=== PATIENT | female | born 1945 | race Two or more races ===

== ENCOUNTER 2017-12-03 18:11 | Inpatient (IN) | payer OTHER ==
[~2017-12-03] VITALS: Ht 91.4 cm; Wt 5.0 kg
[~2017-12-03 18:11] MED LIST: NO TOMA MEDICAMENTO
[2017-12-03] MEDS ORDERED: HYDROCHLOROTHIA25 MG (19:05)
[2017-12-03] MEDS ORDERED: PRILOSEC OTC20 MG (19:05)
[2017-12-03] MEDS ORDERED: COREG CR10 MG (19:05)
[2017-12-03] MEDS ORDERED: COZAAR100 MG (19:06)
[2017-12-03] MEDS ORDERED: ECOTRIN81 MG PO (19:06)
[2017-12-03] MEDS ORDERED: RANEXA500 MG PO (19:06)
[2017-12-03] MEDS ORDERED: CARDURA1 MG (19:06)
[2017-12-03] MEDS ORDERED: NOVOLIN 70100 UNIT/1 (19:07)
[2017-12-03] MEDS ORDERED: CRESTOR40 MG (19:07)
[2017-12-03] MEDS ORDERED: FOLIC ACID1 MG (19:08)
[2017-12-03] MEDS ORDERED: HUMALOG100 UNIT/1 (19:08)
[2017-12-03] MEDS ORDERED: SLOW FE142 MG (19:09)
[2017-12-06] MEDS ORDERED: Lantus 1000 UNITS/10 SUBCUTANEO (08:41)
[2017-12-06] MEDS ORDERED: CARdura 4MG TABLET PO (08:41)
[2017-12-06] MEDS ORDERED: ECOTRIN81 MG PO (08:41)
[2017-12-06] MEDS ORDERED: Coreg 3.125MG TABLET PO (08:41)
== END 2017-12-06 11:04 | disposition home or self-care (01) | DRG 683 ==
LOC: ER 18:11 → MEDI 12-04 11:00 → SEC-K 12-04 11:00 → MEDI 12-04 16:21
PROC: 30233N1 Transfusion of Nonautologous Red Blood Cells into Peripheral Vein, Percutaneous Approach (ICD-10-PCS; principal; 2017-12-04)
DX: I12.9 Hypertensive chronic kidney disease with stage 1 through stage 4 chronic kidney disease, or unspecified chronic kidney disease (principal); Z68.42 Body mass index [BMI] 45.0-49.9, adult; N18.3 Chronic kidney disease, stage 3 (moderate); D63.1 Anemia in chronic kidney disease; I25.10 Atherosclerotic heart disease of native coronary artery without angina pectoris; E66.01 Morbid (severe) obesity due to excess calories; I70.293 Other atherosclerosis of native arteries of extremities, bilateral legs

== ENCOUNTER → 2018-10-13 | Emergency (ER) | payer OTHER ==
[~2018-10-13] VITALS: Ht 152.4 cm; Wt 99.8 kg
[~2018-10-13] MED LIST changes: +CARDURA1 MG; +CARdura 4MG TABLET PO; +COREG CR10 MG; +COZAAR100 MG; +CRESTOR40 MG; +Coreg 3.125MG TABLET PO; +ECOTRIN81 MG PO; +FOLIC ACID1 MG; +HUMALOG100 UNIT/1; +HYDROCHLOROTHIA25 MG; +Lantus 1000 UNITS/10 SUBCUTANEO; +NOVOLIN 70100 UNIT/1; +POM (MEDICAMENTO EN PO; +PRILOSEC OTC20 MG; +RANEXA500 MG PO; +SLOW FE142 MG
== END | disposition left against medical advice (07) ==
LOC: ER 15:50
DX: Z53.20 Procedure and treatment not carried out because of patient's decision for unspecified reasons (principal)

== ENCOUNTER 2018-10-18 09:47 | Inpatient (IN) | payer OTHER ==
[~2018-10-18] VITALS: Ht 160 cm; Wt 85.7 kg
[~2018-10-18 09:47] MED LIST changes: -POM (MEDICAMENTO EN PO
[2018-10-21] MEDS ORDERED: POM (MEDICAMENTO EN PO (11:23)
== END 2018-10-21 11:48 | disposition home or self-care (01) | DRG 812 ==
LOC: MEDJ 09:47
PROVIDERS: ADMIT Internal Medicine Hematology & Oncology
PROC: 30233N1 Transfusion of Nonautologous Red Blood Cells into Peripheral Vein, Percutaneous Approach (ICD-10-PCS; principal; 2018-10-18)
PROC: BW21ZZZ Computerized Tomography (CT Scan) of Abdomen and Pelvis (ICD-10-PCS; 2018-10-19)
DX: D50.0 Iron deficiency anemia secondary to blood loss (chronic) (principal); I13.10 Hypertensive heart and chronic kidney disease without heart failure, with stage 1 through stage 4 chronic kidney disease, or unspecified chronic kidney disease; N18.3 Chronic kidney disease, stage 3 (moderate); I25.10 Atherosclerotic heart disease of native coronary artery without angina pectoris; D63.1 Anemia in chronic kidney disease

== ENCOUNTER 2019-01-29 10:28 | Inpatient (IN) | payer OTHER ==
[~2019-01-29 10:28] MED LIST changes: +POM (MEDICAMENTO EN PO
[2019-02-01] MEDS ORDERED: Coreg 25MG TABLET PO (16:27)
[2019-02-01] MEDS ORDERED: CARdura 2MG TABLET PO (16:27)
[2019-02-01] MEDS ORDERED: RANEXA500 MG PO (16:28)
[2019-02-01] MEDS ORDERED: LOSARTAN POTAS100 MG PO (16:28)
[2019-02-01] MEDS ORDERED: CRESTOR40 MG PO (16:29)
[2019-02-01] MEDS ORDERED: ALPRAZOLAM0.25 MG PO (16:30)
[2019-02-01] MEDS ORDERED: OXYC1TAB9 PO (16:32)
[2019-02-01] MEDS ORDERED: HYDROCHLOROTHIA25 MG PO (16:33)
[2019-02-01] MEDS ORDERED: PRILOSEC OTC20 MG PO (16:34)
[2019-02-01] MEDS ORDERED: HumuLIN R 100 UNIT/1 SUBCUTANEO (16:34)
[2019-02-01] MEDS ORDERED: NOVOLOG MI100 UNIT/1 SUBCUTANEO (16:35)
[2019-02-01] MEDS ORDERED: FOLIC ACID1 MG PO (16:36)
[2019-02-01] MEDS ORDERED: LASIX20 MG PO (16:37)
== END 2019-02-01 17:02 | disposition home or self-care (01) | DRG 812 ==
LOC: MEDI 10:28 → MEDJ 10:31
PROVIDERS: ADMIT Internal Medicine Hematology & Oncology
PROC: 8E0ZXY6 Isolation (ICD-10-PCS; 2019-01-29)
PROC: 30233N1 Transfusion of Nonautologous Red Blood Cells into Peripheral Vein, Percutaneous Approach (ICD-10-PCS; 2019-01-29)
PROC: 07DR3ZX Extraction of Iliac Bone Marrow, Percutaneous Approach, Diagnostic (ICD-10-PCS; principal; 2019-01-30 16:00)
DX: D50.0 Iron deficiency anemia secondary to blood loss (chronic) (principal); D63.1 Anemia in chronic kidney disease; D63.8 Anemia in other chronic diseases classified elsewhere; Z92.89 Personal history of other medical treatment; E11.65 Type 2 diabetes mellitus with hyperglycemia; I25.10 Atherosclerotic heart disease of native coronary artery without angina pectoris; N18.3 Chronic kidney disease, stage 3 (moderate); E66.01 Morbid (severe) obesity due to excess calories; I70.203 Unspecified atherosclerosis of native arteries of extremities, bilateral legs; K21.9 Gastro-esophageal reflux disease without esophagitis; I13.10 Hypertensive heart and chronic kidney disease without heart failure, with stage 1 through stage 4 chronic kidney disease, or unspecified chronic kidney disease

== ENCOUNTER 2019-05-04 14:06 | Inpatient (IN) | payer OTHER ==
[~2019-05-04] VITALS: Ht 121.9 cm; Wt 5.0 kg
[~2019-05-04 14:06] MED LIST changes: +ALPRAZOLAM0.25 MG PO; +CARdura 2MG TABLET PO; +CRESTOR40 MG PO; +Coreg 25MG TABLET PO; +FOLIC ACID1 MG PO; +HYDROCHLOROTHIA25 MG PO; +HumuLIN R 100 UNIT/1 SUBCUTANEO; +LASIX20 MG PO; +LOSARTAN POTAS100 MG PO; +NOVOLOG MI100 UNIT/1 SUBCUTANEO; +OXYC1TAB9 PO; +PRILOSEC OTC20 MG PO
[2019-05-07] MEDS ORDERED: CARVEDILOL25 MG PO (09:02)
[2019-05-07] MEDS ORDERED: OMEPRAZOLE20 MG PO (09:03)
[2019-05-07] MEDS ORDERED: DOXAZOSIN MESYLA2 MG PO (09:03)
[2019-05-16] MEDS ORDERED: ELIQUIS2.5 MG PO (18:00)
[2019-05-16] MEDS ORDERED: Coreg 25MG TABLET PO (18:00)
[2019-05-16] MEDS ORDERED: CARdura 4MG TABLET PO (18:00)
[2019-05-16] MEDS ORDERED: ISOSORBIDE MONO30 MG PO (18:01)
[2019-05-16] MEDS ORDERED: LOSARTAN POTAS100 MG PO (18:01)
[2019-05-16] MEDS ORDERED: RANEXA500 MG PO (18:02)
[2019-05-16] MEDS ORDERED: NIFEDIPINE ER30 MG PO (18:02)
[2019-05-16] MEDS ORDERED: CRESTOR40 MG PO (18:02)
[2019-05-16] MEDS ORDERED: HYDRALAZINE HCL50 MG PO (18:03)
[2019-05-16] MEDS ORDERED: FUROSEMIDE40 MG PO (18:04)
[2019-05-16] MEDS ORDERED: OYSTER SHELL C500 M1 PO (18:04)
[2019-05-16] MEDS ORDERED: CARAFATE1 GM PO (18:05)
[2019-05-16] MEDS ORDERED: FOLIC ACID1 MG PO ×2 (18:05→18:06)
== END 2019-05-16 18:33 | disposition home or self-care (01) | DRG 391 ==
LOC: SURH 14:06
PROVIDERS: ADMIT Internal Medicine Hematology & Oncology
PROC: 30233N1 Transfusion of Nonautologous Red Blood Cells into Peripheral Vein, Percutaneous Approach (ICD-10-PCS; principal; 2019-05-05)
PROC: 02HV33Z Insertion of Infusion Device into Superior Vena Cava, Percutaneous Approach (ICD-10-PCS; 2019-05-06)
PROC: B246ZZZ Ultrasonography of Right and Left Heart (ICD-10-PCS; 2019-05-08)
PROC: BW24ZZZ Computerized Tomography (CT Scan) of Chest and Abdomen (ICD-10-PCS; 2019-05-08)
PROC: 3E0F7GC Introduction of Other Therapeutic Substance into Respiratory Tract, Via Natural or Artificial Opening (ICD-10-PCS; 2019-05-09)
DX: K52.89 Other specified noninfective gastroenteritis and colitis (principal); I50.33 Acute on chronic diastolic (congestive) heart failure; I26.99 Other pulmonary embolism without acute cor pulmonale; Z68.41 Body mass index [BMI] 40.0-44.9, adult; N17.8 Other acute kidney failure; J81.1 Chronic pulmonary edema; I13.0 Hypertensive heart and chronic kidney disease with heart failure and stage 1 through stage 4 chronic kidney disease, or unspecified chronic kidney disease; D63.1 Anemia in chronic kidney disease; D63.8 Anemia in other chronic diseases classified elsewhere; N18.3 Chronic kidney disease, stage 3 (moderate); I25.10 Atherosclerotic heart disease of native coronary artery without angina pectoris; E11.65 Type 2 diabetes mellitus with hyperglycemia; K21.9 Gastro-esophageal reflux disease without esophagitis; E78.2 Mixed hyperlipidemia; E83.51 Hypocalcemia; E83.42 Hypomagnesemia; E87.6 Hypokalemia; E66.01 Morbid (severe) obesity due to excess calories; R09.02 Hypoxemia; I34.0 Nonrheumatic mitral (valve) insufficiency; G25.3 Myoclonus; K59.09 Other constipation
CPT/HCPCS: 240

== ENCOUNTER 2019-08-01 12:11 | Inpatient (IN) | payer OTHER ==
[~2019-08-01] VITALS: Ht 160 cm; Wt 90.7 kg
[~2019-08-01 12:11] MED LIST changes: +CARAFATE1 GM PO; +CARVEDILOL25 MG PO; +DOXAZOSIN MESYLA2 MG PO; +ELIQUIS2.5 MG PO; +FUROSEMIDE40 MG PO; +HYDRALAZINE HCL50 MG PO; +ISOSORBIDE MONO30 MG PO; +NIFEDIPINE ER30 MG PO; +OMEPRAZOLE20 MG PO; +OYSTER SHELL C500 M1 PO
[2019-08-09] MEDS ORDERED: HYOSCYAMINE0.125 M1 SL (09:06)
[2019-08-09] MEDS ORDERED: ELIQUIS2.5 MG PO (09:06)
[2019-08-09] MEDS ORDERED: LIPITOR40 MG PO (09:07)
[2019-08-09] MEDS ORDERED: CARVEDILOL25 MG PO (09:08)
[2019-08-09] MEDS ORDERED: CARdura 2MG TABLET PO (09:08)
[2019-08-09] MEDS ORDERED: DOXAZOSIN MESYLA2 MG PO (09:09)
[2019-08-09] MEDS ORDERED: ISOSORBIDE MONO30 MG PO (09:10)
[2019-08-09] MEDS ORDERED: LOSARTAN POTAS100 MG PO (09:10)
[2019-08-09] MEDS ORDERED: HYDRALAZINE HCL50 MG PO (09:10)
[2019-08-09] MEDS ORDERED: ALPRAZOLAM0.25 MG PO (09:11)
[2019-08-09] MEDS ORDERED: RANEXA500 MG PO (09:11)
[2019-08-09] MEDS ORDERED: NIFEDIPINE ER30 MG PO (09:11)
[2019-08-09] MEDS ORDERED: OXYC1TAB9 PO (09:12)
[2019-08-09] MEDS ORDERED: PRE PROTEIN1 EACH PO (09:12)
[2019-08-09] MEDS ORDERED: OMEPRAZOLE20 MG PO (09:13)
[2019-08-09] MEDS ORDERED: FUROSEMIDE40 MG PO (09:13)
[2019-08-09] MEDS ORDERED: CARAFATE1 GM PO (09:14)
[2019-08-09] MEDS ORDERED: NOVOLIN 70100 UNIT/1 SUBCUTANEO (09:15)
[2019-08-09] MEDS ORDERED: NOVOLOG MI100 UNIT/1 SUBCUTANEO (09:15)
== END 2019-08-09 11:37 | disposition home health service (06) | DRG 698 ==
LOC: SEC-K 12:11 → MEDJ 21:26
PROVIDERS: ADMIT Internal Medicine Hematology & Oncology
PROC: 30233N1 Transfusion of Nonautologous Red Blood Cells into Peripheral Vein, Percutaneous Approach (ICD-10-PCS; principal; 2019-08-01)
PROC: 02HV33Z Insertion of Infusion Device into Superior Vena Cava, Percutaneous Approach (ICD-10-PCS; 2019-08-01)
PROC: 0T9B70Z Drainage of Bladder with Drainage Device, Via Natural or Artificial Opening (ICD-10-PCS; 2019-08-01)
PROC: 4A033R1 Measurement of Arterial Saturation, Peripheral, Percutaneous Approach (ICD-10-PCS; 2019-08-02)
PROC: 3E0F7GC Introduction of Other Therapeutic Substance into Respiratory Tract, Via Natural or Artificial Opening (ICD-10-PCS; 2019-08-03)
PROC: BB24ZZZ Computerized Tomography (CT Scan) of Bilateral Lungs (ICD-10-PCS; 2019-08-03)
PROC: B246ZZZ Ultrasonography of Right and Left Heart (ICD-10-PCS; 2019-08-03)
PROC: 4A12X4Z Monitoring of Cardiac Electrical Activity, External Approach (ICD-10-PCS; 2019-08-03)
DX: E11.22 Type 2 diabetes mellitus with diabetic chronic kidney disease (principal); J80 Acute respiratory distress syndrome; I50.31 Acute diastolic (congestive) heart failure; Z68.41 Body mass index [BMI] 40.0-44.9, adult; J98.11 Atelectasis; J90 Pleural effusion, not elsewhere classified; I13.0 Hypertensive heart and chronic kidney disease with heart failure and stage 1 through stage 4 chronic kidney disease, or unspecified chronic kidney disease; I30.8 Other forms of acute pericarditis; E87.2 Acidosis; G72.81 Critical illness myopathy; I82.402 Acute embolism and thrombosis of unspecified deep veins of left lower extremity; E88.09 Other disorders of plasma-protein metabolism, not elsewhere classified; N18.3 Chronic kidney disease, stage 3 (moderate); N17.8 Other acute kidney failure; D63.1 Anemia in chronic kidney disease; R31.0 Gross hematuria; D46.A Refractory cytopenia with multilineage dysplasia; E66.01 Morbid (severe) obesity due to excess calories; E11.65 Type 2 diabetes mellitus with hyperglycemia; R91.8 Other nonspecific abnormal finding of lung field; I25.118 Atherosclerotic heart disease of native coronary artery with other forms of angina pectoris; I70.0 Atherosclerosis of aorta; I08.1 Rheumatic disorders of both mitral and tricuspid valves; Z79.4 Long term (current) use of insulin